=== PATIENT | male | born 1975 | race African-American/Black ===

== ENCOUNTER 2023-09-25 22:02 | Emergency (ER) | payer MEDICAID, OTHER ==
[~2023-09-25] VITALS: Ht 180.3 cm; Wt 97.0 kg
[2023-09-25 22:31] VITALS: O2SAT 99
[2023-09-26] MEDS ORDERED: TETANUS, DIPHTHERIA, PERTUSSIS VAC/PF 0.5ML (>10YR OLD) IM ONE (00:30)
[2023-09-26] MEDS ORDERED: LIDOCAINE HCL/EPINEPHRINE 1%-EPI 1:100,000 20 ML VIAL INFIL NR (01:30)
[2023-09-26] MEDS: LIDOCAINE HCL/EPINEPHRINE 1%-EPI 1:100,000 20 ML VIAL INFIL ONE (01:53)
[2023-09-26] MEDS: TETANUS, DIPHTHERIA, PERTUSSIS VAC/PF 0.5ML (>10YR OLD) IM ONE (01:53)
[2023-09-26] MEDS: LIDOCAINE HCL/PF 1% 10 MG/ML 5ML VIAL INFIL ONE (01:53)
[2023-09-26] MEDS ORDERED: CHLO3800 TP (02:37)
[2023-09-26 03:00] VITALS: BP 122/58; PULSE 80; RESP 14; TEMP 98
== END 2023-09-26 03:08 | disposition home or self-care (01) ==
LOC: ER 22:02
DX: S01.511A Laceration without foreign body of lip, initial encounter (principal); I10 Essential (primary) hypertension; Y08.89XA Assault by other specified means, initial encounter; Y93.89 Activity, other specified; Y92.89 Other specified places as the place of occurrence of the external cause; Y99.8 Other external cause status
CPT/HCPCS: 12013; 99285; 70450; 72125; 90715; 90471; J3490 ×2; Z7610